=== PATIENT | female | born 1985 | race Caucasian/White ===

== ENCOUNTER 2024-08-23 16:11 | Emergency (ER) | payer SELFPAY ==
[2024-08-23 16:31] VITALS: BP 118/65; PULSE 96; RESP 20; TEMP 36.6; O2SAT 100
[2024-08-23 17:33] LABS: Influenza A QL RT-PCR Positive (Negative); Influenza B QL RT-PCR Negative (Negative); RSV RNA, RT-PCR Negative (Negative); SARS-CoV-2 RNA PCR Negative (Negative)
--- NOTE | 2024-08-23 18:51 | ED_ITS ---
HPI - General Adult General Chief complaint: Unspecified Stated complaint: family has influenza A c/o weak,n/v Time Seen by Provider: 08/23/24 18:51 Source: patient Mode of arrival: ambulatory Limitations: no limitations History of Present Illness HPI narrative: This is a 39-year-old female who presents to the ED for chief complaint of flu- like symptoms x 12 hours. Patient states that she has started to develop body aches, fatigue, nausea and sore throat. Also reports dry cough. States that she has history of asthma and feels like she has had some wheezing. Endorses soreness to the chest due to the cough. States that multiple family members have been sick at home with influenza type A. Related Data Allergies Allergy/AdvReac Type Severity Reaction Status Date / Time paper tape AdvReac Intermediate Rash Uncoded 08/23/24 16:34 Review of Systems Review of Systems: All systems as dictated in HPI Exam Narrative: GENERAL: Well-appearing, well-nourished, and in no acute distress. HEAD: Normocephalic, atraumatic. EYES: PERRLA and EOMI. ENT: Nares clear, no rhinorrhea or epistaxis. Mucous membranes moist. Oropharynx without tonsillar hypertrophy exudate or other lesions. NECK: Supple. No adenopathy or masses. CHEST: No respiratory distress. Clear to auscultation. No wheezes rales or rhonchi HEART: Regular rate and rhythm. No murmur heard. Normal peripheral pulses. ABDOMEN: Soft, nontender, nondistended, normal active bowel sounds. MSK: Normal range of motion. No edema. SKIN: Warm, dry, no rash. NEURO: Alert and oriented x4. No focal deficits. PSYCH: Normal mood and affect. Course Vital Signs Vital signs: Vital Signs Temperature 97.9 F 08/23/24 16:31 Pulse Rate 96 08/23/24 16:31 Respiratory Rate 20 08/23/24 16:31 Blood Pressure 118/65 08/23/24 16:31 Pulse Oximetry 100 08/23/24 16:31 Oxygen Delivery Room Air 08/23/24 16:31 Temperature 97.6 F 08/23/24 20:24 Pulse Rate 89 08/23/24 20:24 Respiratory Rate 18 08/23/24 20:24 Blood Pressure 112/67 08/23/24 20:24 Pulse Oximetry 100 08/23/24 20:24 Oxygen Delivery Room Air 08/23/24 16:31 Medical Decision Making MDM Narrative Medical decision making narrative: This is a 39-year-old female who presents to the ED for chief complaint of flu- like symptoms, family members positive for flu. Vitals are normal. There is remarkable for the above. Viral swabs positive for influenza type A. Patient did have slight wheezing on exam. She will be given prescription for Medrol Dosepak. Shared decision making to avoid Tamiflu prescription today. She feels comfortable treating her symptoms at home supportively. Patient will be discharged in stable condition. Supportive measures discussed and return precautions given. Patient is understanding and agreeable with plan for discharge with PCP follow-up. Vital Signs Vital Signs: Vital Signs Temperature 97.9 F 08/23/24 16:31 Pulse Rate 96 08/23/24 16:31 Respiratory Rate 20 08/23/24 16:31 Blood Pressure 118/65 08/23/24 16:31 Pulse Oximetry 100 08/23/24 16:31 Oxygen Delivery Room Air 08/23/24 16:31 Temperature 97.6 F 08/23/24 20:24 Pulse Rate 89 08/23/24 20:24 Respiratory Rate 18 08/23/24 20:24 Blood Pressure 112/67 08/23/24 20:24 Pulse Oximetry 100 08/23/24 20:24 Oxygen Delivery Room Air 08/23/24 16:31 Lab Data Labs: Lab Results 08/23/24 Range/Units 16:42 Influenza A (RT-PCR) Positive A (Negative) Influenza B (RT-PCR) Negative (Negative) RSV (RT-PCR) Negative (Negative) SARS-CoV-2 RNA (RT-PCR) Negative (Negative) Discharge Plan Discharge Clinical Impression: Influenza A Patient Disposition: Home, Self-Care Condition: Stable Instructions: Antibiotic Form, Influenza (ED) Additional Instructions: Exam today is positive for influenza. Please take your Dosepak and albuterol inhaler for wheezing and bronchitis due to the virus. Symptoms should self resolve over the next week. If you have any new or worsening symptoms please return to the ER for further evaluation. Patient Language: Icelandic Prescriptions: New methylprednisolone [Medrol (Mateo)] 4 mg tablets,dose pack See Rx Instructions .ROUTE .COMPLEX Qty: 21 0RF Rx Instructions: for 6 days albuterol sulfate [Ventolin HFA] 90 mcg/actuation HFA aerosol inhaler 2 puff inhalation QID PRN (Reason: shortness of breath or wheezing) Qty: 6.7 0RF ibuprofen 600 mg tablet 600 mg PO Q6H PRN (Reason: fever or pain) Qty: 30 0RF Follow-up/Referrals: PHYSICIAN NOT ON STAFF,NONSTAFF [Primary Care Provider] - Stand Alone Forms: Work/School Release IP Time of Disposition: 19:30
--- OUTSIDE RECORDS SUMMARY | 2024-08-23 19:01 | XMS_ITS | Continuity of Care Document ---
Author Organization [facility] Address [address] [place] [address] Phone Care Team Providers Care Issuing Operator Name Role Phone Karsten Galarza Unavailable Unavailable Allergies, Adverse Reactions, Alerts Substance Reaction Status Criticality No Known Allergies Active No Inform ation Medications Medication Instructions Dosage Effective Dates (start - stop) Status Comments trazodone 50 mg tablet take 1-2 tablet by oral route every day at bedtime as needed - Active lamotrigine ER 100 mg tablet,extended release 24 hr take 1 tablet by oral route every AM swallowing whole. Do not crush, chew and/or divide. - Active lamotrigine 25 mg tablet take 2 tablet by oral route every day 50 MG - Active hydroxyzine HCl 25 mg tablet take 1 tablet by oral route every three times a day as needed anxiety - Active Effexor XR 75 mg capsule,extended release take 1 capsule by oral route every day with food 75 MG - Active buspirone 15 mg tablet take 1 tablet by oral route 2 times every day 15 MG - Active aripiprazole 10 mg tablet take 1 tablet by oral route every day 10 MG - Active aripiprazole 5 mg tablet take 1 tablet by oral route every day 5 MG - Active buspirone 10 mg tablet take 1 tablet by oral route 3 times every day 10 MG - Active Effexor XR 37.5 mg capsule,extended release take 1 capsule by oral route every day with food 37.5 MG - Active aripiprazole 2 mg tablet take 1 tablet by oral route every day AM - Active lamotrigine 25 mg tablet take 2 tablet by oral route 2 times every day 50 MG - Active patient to take 1 tablet 25 mg PO daily x 2 weeks then; 2 tablets 50 mg PO daily x2 weeks then 4 tablets 100 mg daily thereafter buspirone 10 mg tablet take 1 tablet by oral route 2 times every day 10 MG - Active Procedures Procedure Date E&M Established 53289 - [facility] 57153 - [facility] 09645 - [facility] E&M Moderate Established 33210 - [facility] Established 06919 - [facility] E&M Comprehensive Established 56717 - [facility] E&M Moderate Established 25836 - [facility] E[facility]M Comprehensive Established 67003 - Te [facility] E&M Moderate Established 43404 - [facility] Telephonic Asmt and Mgmt Dur ing Pandemic 5 10 Psychiatric Evaluation - [facility] Individual Therapy 53+ Min Clinical Assessment As per patient privacy policy some of the clinical information may not be visible. Advance Directives Directive Yes / No Effective Date File Name No Information Encounters Encounter Description Practice Location Reason(s) For Visit Diagnoses Date Provider Providers Copied on Encounter [facility], [address], [id number], tel:[phone] [facility] No Information 4 Geovanni Shelley. [address], [place], [place], [id number]. E&M Established 07195 - [facility], [address], [place], [place], [id number], tel:[phone] Junior No Information 1 Jimmy Lemons. [address], [address], [place], [address]. tel:[phone] E&M Moderate Established 60669 - [facility], [address], [place], [place], [id number], [place] tel:[phone] Junior No Information 1 Hnilica Vesta. [address], [address], [place], [address]. tel:[phone] E&M [facility] Established 65393 - [facility], [address], [place], [place], [id number], [place] tel:[phone] Junior No Information 0 0 Hnilica Vesta. [address], [address], [place], [address]. tel:[phone] E&M [facility] Established 79979 - [facility], [address], [place], [place], [id number], [place] tel:[phone] Junior No Information 0 Hnilica Vesta. [address], [address], [place], [address]. tel:[phone] E&[facility] Established 00763 - [facility], [address], [place], [place], [id number], [place] tel:[phone] Junior No Information 0 Hnilica Vesta. [address], [address], [place], [address]. tel:[phone] E&[facility] Established 19625 - [facility], [address], [place], [place], [id number], [place] tel:[phone] Junior Bipolar I disorder, current or most recent episode manic, with psychotic features 0 Hnilica Vesta. [address], [address], [place], [address]. tel:[phone] E&M [facility] Established 24799 - [facility], [address], [place], [place], [id number], [place] tel:[phone] Junior No Information Guillermo-3 0-202 0 Hnilica Vesta. [address], [address], [place], [address]. tel:[phone] E&M [facility] 37707 - [facility], [address] [facility] [address] [place], [place], [id number], tel:[phone] Junior No Information Guillermo-1 6-202 0 Hnilica Vesta. [address], [address], [place], [address]. tel:[phone] E&M [facility] 13003 - [facility], [address] [facility], [place], [place], [id number], [place] tel:[phone] Junior No Information Apr-2 1-202 0 Hnilica Vesta. [address], [address], [place], [address]. tel:[phone] [facility], [address] [place] [address], [id number], [place] tel:[phone] Junior No Information Apr-2 0-202 0 Good Myranda. [address], [address], [place], [address]. tel:[phone] Psychiatric Evaluation - [facility], [address], [id number], [place] tel:[phone] Junior No Information Mar-3 1-202 0 Hnilica Vesta. [address], [address], [place], [address]. tel:[phone] Individual Therapy 53+ Min [facility], [address] [place] [address], [id number], [place] tel:[phone] Junior No Information Mar-1 0-202 0 No Information Clinical Assessment [facility], [address], [id number], [place] tel:[phone] Junior Persistent depressive disorder (dysthymia)U nspecified anxiety disorderPost traumatic stress disorder Mar-0 2-202 0 No Information [facility], [address], [id number], [place] tel:[phone] Junior No Information 0 Alex Ac. [address] [place], [place], [id number]. tel:[phone] Family History Family Member Type Diagnosis Age At Onset Paternal grandmother Problem (finding) Family history of anxiety state Father Problem (finding) Family history of depre ssion Father Problem substance abuse Immunizations Vaccine Date Status Comments influenza virus vaccine, unspecified formulation administered Source: New Immu nization Record Payers Payer name Insurance type Covered green party ID Authoriza tion(s) No Information Social History Type Description Quantity Date Captured Comments Sex Female Smoking Status No Information Sexual Orientation Straight or heterosexual Jul Gender Identity Female Chief Complaint And Reason For Visit No Information Reason For Referral Reason For Referral No Information Plan Of Treatment Date Type Action Status Goal Tobacco cessation counseling completed History Of Present Illness Encounter Date Complaint History Of Prese nt Illness No Information Functional Status Date Functional Assessmen t No Information Instructions Date Instruction Additional Infor mation {local.txt_patient_plan} Related to Bipolar I disorder, current or most recent episode manic, with psychotic features {local.txt_patient_plan} Related to Posttraumatic stress disorder {local.txt_patient_plan} Related to Unspecified anxiety disorder {local.txt_patient_plan} Related to Persistent depressive disorder (dysthymia) Assessments Type Assessment Date No Information Patient Care Teams Name Effective Dates (start - stop) Status Members No Information
[2024-08-23 19:06] VITALS: RESP 18; O2SAT 100
[2024-08-23 20:24] VITALS: BP 112/67; PULSE 89; RESP 18; TEMP 36.4; O2SAT 100
== END 2024-08-23 20:26 | disposition home or self-care (01) ==
PROVIDERS: Emergency Provider Physician Assistant
DX: J10.1 Influenza due to other identified influenza virus with other respiratory manifestations (principal); Z20.822 Contact with and (suspected) exposure to COVID-19
CPT/HCPCS: 87637; 99283

== ENCOUNTER 2024-08-26 11:36 | Emergency (ER) | payer SELFPAY ==
[2024-08-26 11:52] VITALS: BP 128/86; PULSE 77; RESP 16; TEMP 36.4; O2SAT 98
--- NOTE | 2024-08-26 12:15 | ED.GENADULT ---
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 She is still having some cough and rhinorrhea. No fevers. Diagnosed with influenza on 08/23/2024. 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 No additional complaints. Related Data Allergies Allergy/AdvReac Type Severity Reaction Status Date / Time paper tape AdvReac Intermediate Rash Uncoded 08/23/24 16:34 Review of Systems Constitutional: Constitutional: Reports no additional constitutional complaints ENT: Reports system reviewed and no additional complaints, except as documented Respiratory: Respiratory: Reports no additional respiratory complaints PMFSH Past Medical History Medical History (Updated 08/26/24 @ 12:18 by Tim Ayon MD) Healthy female adult Exam Narrative: GENERAL: Well-appearing, well-nourished, and in no acute distress. HEAD: Normocephalic, atraumatic. ENT: Mucous membranes moist. NECK: Supple. CHEST: Clear to auscultation. No respiratory distress. HEART: Regular rate and rhythm. Normal peripheral pulses. EXTREMITIES: Normal range of motion. No edema. NEURO: Alert and oriented x3. PSYCH: Normal mood and affect. Course Course Emergency Course: Will give 1 more day off work. Vital Signs Vital signs: Vital Signs Temperature 97.6 F 08/26/24 11:52 Pulse Rate 77 08/26/24 11:52 Respiratory Rate 16 08/26/24 11:52 Blood Pressure 128/86 08/26/24 11:52 Pulse Oximetry 98 08/26/24 11:52 Oxygen Delivery Room Air 08/26/24 11:52 Temperature 97.6 F 08/26/24 11:52 Pulse Rate 77 08/26/24 11:52 Respiratory Rate 16 08/26/24 11:52 Blood Pressure 128/86 08/26/24 11:52 Pulse Oximetry 98 08/26/24 11:52 Oxygen Delivery Room Air 08/26/24 11:52 Medical Decision Making Vital Signs Vital Signs: Vital Signs Temperature 97.6 F 08/26/24 11:52 Pulse Rate 77 08/26/24 11:52 Respiratory Rate 16 08/26/24 11:52 Blood Pressure 128/86 08/26/24 11:52 Pulse Oximetry 98 08/26/24 11:52 Oxygen Delivery Room Air 08/26/24 11:52 Temperature 97.6 F 08/26/24 11:52 Pulse Rate 77 08/26/24 11:52 Respiratory Rate 16 08/26/24 11:52 Blood Pressure 128/86 08/26/24 11:52 Pulse Oximetry 98 08/26/24 11:52 Oxygen Delivery Room Air 08/26/24 11:52 Discharge Plan Discharge Clinical Impression: Influenza Patient Disposition: Home, Self-Care Condition: Stable Instructions: Influenza (ED) Patient Language: Trinidadian Prescriptions: No Action methylprednisolone [Medrol (Mateo)] 4 mg tablets,dose pack See Rx Instructions .ROUTE .COMPLEX Qty: 21 0RF Rx Instructions: for 6 days albuterol sulfate [Ventolin HFA] 90 mcg/actuation HFA aerosol inhaler 2 puff inhalation QID PRN (Reason: shortness of breath or wheezing) Qty: 6.7 0RF ibuprofen 600 mg tablet 600 mg PO Q6H PRN (Reason: fever or pain) Qty: 30 0RF Follow-up/Referrals: 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
== END 2024-08-26 12:37 | disposition home or self-care (01) ==
LOC: ANHED 12:21
PROVIDERS: Emergency Provider Emergency Medicine
DX: J11.1 Influenza due to unidentified influenza virus with other respiratory manifestations (principal)
CPT/HCPCS: 99283

== ENCOUNTER 2024-11-27 04:07 | Emergency (ER) | payer SELFPAY ==
[2024-11-27] VITALS (17 sets, daily range): BP systolic 90–117; BP diastolic 68–84; PULSE 43–85; RESP 12–25; TEMP 36–36.7; O2SAT 97–100
--- NOTE | ~2024-11-27 | XR_ITS ---
AP and oblique views of the right ribs and PA and lateral chest radiographs Clinical History: Pain Findings: No rib fracture is seen. Osseous alignment is anatomic. Lungs are clear, without focal cons olidation or pleural effusion. Cardiomediastinal contour is within normal limits. Soft tissues are un remarkable. Mild L1 compression fracture deformity present. Impression: No rib fracture is seen. Clear lungs. Mild L1 compression fracture deformity. Reviewed, dictated and finalized at location M. Impression: No rib fracture is seen. Clear lungs. Mild L1 compression fracture deformity.
--- NOTE | ~2024-11-27 | CT_ITS ---
CT Scan of the Chest without Contrast: Clinical Indication: Chest pain, rib fracture Technique: Contiguous sections were acquired throughout the chest without intravenous contrast. Dose reduction technique was used on this scan by utilizing automated exposure control and iterative recon struction technique. The dose-length product (DLP) was 149.04 mGy-cm. Findings: There is no evidence of any significant mediastinal, hilar or axillary lymphadenopathy. The mediastin al soft tissues appear normal. There is no evidence of pleural or pericardial effusion. The lungs are clear. No pulmonary nodules or infiltrates are noted. Images through the upper abdomen reveal no abnormalities. Mild L1 compression fracture deformities no naheed, likely chronic. No rib fracture seen. Impression: No rib fracture seen. Clear lungs. Probable chronic L1 compression deformity. Reviewed, dictated and finalized at [facility]. Impression: No rib fracture seen. Clear lungs. Probable chronic L1 compression deformity.
--- NOTE | 2024-11-27 04:25 | ED.SOB ---
HPI - SOB/Dyspnea General Chief Complaint: Shortness of Breath/Dyspnea <Mayela Garvey MD - Last Filed: 11/27/24 17:34> Stated Complaint: R chest pressure <Mayela Garvey MD - Last Filed: 11/27/24 17:34> Time Seen by Provider: 11/27/24 04:22 <Mayela Garvey MD - Last Filed: 11/27/24 17:34> Source: patient <Mayela Garvey MD - Last Filed: 11/27/24 17:34> Mode of arrival: ambulatory <Mayela Garvey MD - Last Filed: 11/27/24 17:34> Limitations: no limitations <Mayela Garvey MD - Last Filed: 11/27/24 17:34> History of Present Illness HPI Narrative: Patient presents with right-sided chest pain/pressure was rib pain particularly along her left lateral and anterior chest in particular under her right breast. She received a tight of good for someone 2 days ago during which time she felt a pop. At 1st she thought it was her back but the pain has been increasing it hurts to breathe. She feels short of breath and nauseated. She has been using ibuprofen at home. Cardiac risk factors HTN: 0 HLD:0 DM:0 Obese:0 Smoker: Yes Personal history DE/TIA/CVA: 0 Fam Hx DE in first degree relative <65yo: Yes <Mayela Garvey MD - Last Filed: 11/27/24 17:34> Related Data Allergies/Adverse Reactions: Allergies Allergy/AdvReac Type Severity Reaction Status Date / Time paper tape AdvReac Intermediate Rash Uncoded 08/23/24 16:34 <Mayela Garvey MD - Last Filed: 11/27/24 17:34> [facility] Past Medical History Medical History: Medical History Influenza A Aug 2024 <Mayela Garvey MD - Last Filed: 11/27/24 17:34> Exam Narrative: GENERAL: well-nourished, in mild acute distress. HEAD: Normocephalic, atraumatic. EYES: Non injected, non icteric ENT: Nares clear, no rhinorrhea or epistaxis. Gross auditory acuity intact. NECK: Supple. No meningismus. CHEST: Speaking in full sentences. No respiratory distress. Splinting on full breaths but breath sounds appreciable bilaterally. Tenderness to palpation left lateral chest wall and anterior chest wall. No bony crepitus or subcutaneous emphysema. HEART: Regular rate and rhythm. . ABDOMEN: Soft, nondistended. No rigidity or guarding. Not peritoneal EXTREMITIES: Normal range of motion. No lower extremity edema. SKIN: Warm, dry, no rash. NEURO: No focal deficits. Alert and oriented. Answering questions. Following commands. Normal speech without aphasia or dysarthria. PSYCH: Congruent mood and affect. <Mayela Garvey MD - Last Filed: 11/27/24 17:34> Course Vital Signs Vital signs: Vital Signs Temperature 96.8 F L 11/27/24 04:10 Pulse Rate 85 11/27/24 04:10 Respiratory Rate 15 11/27/24 04:10 Blood Pressure 110/83 11/27/24 04:10 Pulse Oximetry 100 11/27/24 04:10 Oxygen Delivery Room Air 11/27/24 04:10 Temperature 98.1 F 11/27/24 04:31 Pulse Rate 56 L 11/27/24 09:02 Respiratory Rate 16 11/27/24 09:02 Blood Pressure 100/70 11/27/24 09:02 Pulse Oximetry 99 11/27/24 09:02 Oxygen Delivery Room Air 11/27/24 04:26 <Mayela Garvey MD - Last Filed: 11/27/24 17:34> Vital Signs Temperature 96.8 F L 11/27/24 04:10 Pulse Rate 85 11/27/24 04:10 Respiratory Rate 15 11/27/24 04:10 Blood Pressure 110/83 11/27/24 04:10 Pulse Oximetry 100 11/27/24 04:10 Oxygen Delivery Room Air 11/27/24 04:10 Temperature 98.1 F 11/27/24 04:31 Pulse Rate 56 L 11/27/24 09:02 Respiratory Rate 16 11/27/24 09:02 Blood Pressure 100/70 11/27/24 09:02 Pulse Oximetry 99 11/27/24 09:02 Oxygen Delivery Room Air 11/27/24 04:26 <Shyam Sanchez III, DO - Last Filed: 11/27/24 18:01> MDM - SOB/Dyspnea MDM Narrative Medical decision making narrative: Patient presents with chest pain and shortness of breath. She felt a pop recently when she was hugged is otherwise been chest wall pain particularly anterolaterally on the right. In the emergency department they are afebrile with vital signs within normal limits. Dimer mildly abnormal but: YEARS Algorithm Clinical signs of DVT: No Hemoptysis: No PE is most likely diagnosis: No D-dimer >1000ng/mL: No Result: PE Excluded HEART SCORE History 2 highly suspicious 1 moderately suspicious 0 slightly suspicious History score [address] depression/elevation not due to LBBB, LVH, or digoxin [address] depression but LBBB, LVH, nonspecific repolarization changes 0 normal ECG score 0 Age 2 >/= 65 1 45-64 0 <45 Age score 0 Risk factors (HTN, hypercholesterolemia, DM, obesity with BMI >30, current smoker or cessation </=3mo), positive fam hx with parent or sibling with CVD before age 65, atherosclerotic disease (prior DE, PCI/CABG, CVA/TIA, or peripheral arterial disease) 2 >/= 3 risk factors or history of atherosclerotic dz 1 - 1-2 risk factors 0 no known risk factors Risk factor score 1 Initial Troponin 2 >3 times normal limit 1 1-3 times normal limit 0 less than or equal to normal limit Troponin score 0 Total HEART Score 1 Patient continued to have pain despite negative x-ray. Proceed with CT imaging to assess for occult rib fracture(s). Signed out to oncoming ED attending. <Mayela Garvey MD - Last Filed: 11/27/24 17:34> Patient presents with chest pain and shortness of breath. She felt a pop recently when she was hugged is otherwise been chest wall pain particularly anterolaterally on the right. In the emergency department they are afebrile with vital signs within normal limits. Dimer mildly abnormal but: YEARS Algorithm Clinical signs of DVT: No Hemoptysis: No PE is most likely diagnosis: No D-dimer >1000ng/mL: No Result: PE Excluded HEART SCORE History 2 highly suspicious 1 moderately suspicious 0 slightly suspicious History score [address] depression/elevation not due to LBBB, LVH, or digoxin [address] depression but LBBB, LVH, nonspecific repolarization changes 0 normal ECG score 0 Age 2 >/= 65 1 45-64 0 <45 Age score 0 Risk factors (HTN, hypercholesterolemia, DM, obesity with BMI >30, current smoker or cessation </=3mo), positive fam hx with parent or sibling with CVD before age 65, atherosclerotic disease (prior DE, PCI/CABG, CVA/TIA, or peripheral arterial disease) 2 >/= 3 risk factors or history of atherosclerotic dz 1 - 1-2 risk factors 0 no known risk factors Risk factor score 1 Initial Troponin 2 >3 times normal limit 1 1-3 times normal limit 0 less than or equal to normal limit Troponin score 0 Total HEART Score 1 Patient continued to have pain despite negative x-ray. Proceed with CT imaging to assess for occult rib fracture(s). Signed out to oncoming ED attending. assumned care pending ct. no fx seen in ribs on ct has l1 compression fx. Pt is tender there so will treat as acute with norco for home. <Shyam Salamancaver III, DO - Last Filed: 11/27/24 18:01> Lab Data Attestation: I reviewed the patient's lab results. <Mayela Garvey MD - Last Filed: 11/27/24 17:34> Lab results narrative: CBC without anemia, thrombocytopenia, leukocytosis. <Mayela Garvey MD - Last Filed: 11/27/24 17:34> Result diagrams: 11/27/24 04:34 11/27/24 04:34 <Mayela Garvey MD - Last Filed: 11/27/24 17:34> Labs: Lab Results 11/27/24 11/27/24 11/27/24 Range/Units 04:34 04:34 06:16 WBC 7.6 (4.5-10.0) K/mm3 RBC 3.97 L (4.2-5.4) M/mm3 Hgb 12.7 (12.0-15.0) g/dL Hct 38.7 (37.0-47.0) % MCV 97.5 (80-100) fl MCH 32.0 (26-34) pg MCHC 32.8 (32-36) g/dl RDW 13.1 (11.5-14.5) % Plt Count 246 (150-375) k/mm3 MPV 11.2 H (7.4-10.4) fl Immature Gran % (Auto) 0.3 (0-0.5) % Neut % (Auto) 69.2 (45.5-73.1) % Lymph % (Auto) 18.4 (18.3-44.2) % [place] % (Auto) 8.1 (2.6-8.5) % Eos % (Auto) 3.0 (0-4.4) % Baso % (Auto) 1.0 (0.2-1.2) % Lymph # (Auto) 1.40 (0.9-3.2) K/mm3 [place] # (Auto) 0.6 (0.1-0.6) K/mm3 Eos # (Auto) 0.2 (0-0.3) K/mm3 Baso # (Auto) 0.1 (0.0-0.1) K/mm3 Abs Immat Gran (auto) 0.02 (0.00-0.031) K/mm3 Absolute Neuts (auto) 5.3 (1.3-6.7) K/mm3 Absolute Nucleated RBC 0.000 (0.0-0.012) K/mm3 Nucleated RBC % 0.0 (0.0-0.2) % PT 13.5 (11.1-14.7) Seconds INR 1.0 APTT 32.6 (22.3-36.8) Seconds D-Dimer 0.64 H Cancelled (<0.48) ug/mL Sodium 140 (137-145) mmol/L Potassium 4.0 (3.4-5.0) mmol/L Chloride 109 H (98-107) mmol/L Carbon Dioxide 22 (22-30) mmol/L Anion Gap 9 (4-12) mmol/L BUN 15 (7-17) mg/dL Creatinine 0.81 (0.7-1.0) mg/dL Estim Creat Clear Calc 78 ml/min Estimated GFR > 60 (59 - ) Glucose 95 (65-110) mg/dL Calcium 9.4 (8.4-10.2) mg/dL Total Bilirubin 1.2 (0.2-1.3) mg/dL AST 32 (14-36) U/L ALT 25 (6-35) U/L Alkaline Phosphatase 72 (38-126) U/L Troponin I < 0.012 (0.000-0.034) ng/mL Total Protein 8.0 (6.3-8.2) g/dL Albumin 4.7 (3.5-5.1) g/dL Lipase 37 (23-300) U/L POC Urine HCG, Qual Negative (Negative) Influenza A (RT-PCR) (Negative) Influenza B (RT-PCR) (Negative) RSV (RT-PCR) (Negative) SARS-CoV-2 RNA (RT-PCR) (Negative) 11/27/24 11/27/24 Range/Units 06:18 08:04 WBC (4.5-10.0) K/mm3 RBC (4.2-5.4) M/mm3 Hgb (12.0-15.0) g/dL Hct (37.0-47.0) % MCV (80-100) fl MCH (26-34) pg MCHC (32-36) g/dl RDW (11.5-14.5) % Plt Count (150-375) k/mm3 MPV (7.4-10.4) fl Immature Gran % (Auto) (0-0.5) % Neut % (Auto) (45.5-73.1) % Lymph % (Auto) (18.3-44.2) % [place] % (Auto) (2.6-8.5) % Eos % (Auto) (0-4.4) % Baso % (Auto) (0.2-1.2) % Lymph # (Auto) (0.9-3.2) K/mm3 [place] # (Auto) (0.1-0.6) K/mm3 Eos # (Auto) (0-0.3) K/mm3 Baso # (Auto) (0.0-0.1) K/mm3 Abs Immat Gran (auto) (0.00-0.031) K/mm3 Absolute Neuts (auto) (1.3-6.7) K/mm3 Absolute Nucleated RBC (0.0-0.012) K/mm3 Nucleated RBC % (0.0-0.2) % PT (11.1-14.7) Seconds INR APTT (22.3-36.8) Seconds D-Dimer (<0.48) ug/mL Sodium (137-145) mmol/L Potassium (3.4-5.0) mmol/L Chloride (98-107) mmol/L Carbon Dioxide (22-30) mmol/L Anion Gap (4-12) mmol/L BUN (7-17) mg/dL Creatinine (0.7-1.0) mg/dL Estim Creat Clear Calc ml/min Estimated GFR (59 - ) Glucose (65-110) mg/dL Calcium (8.4-10.2) mg/dL Total Bilirubin (0.2-1.3) mg/dL AST (14-36) U/L ALT (6-35) U/L Alkaline Phosphatase (38-126) U/L Troponin I < 0.012 (0.000-0.034) ng/mL Total Protein (6.3-8.2) g/dL Albumin (3.5-5.1) g/dL Lipase (23-300) U/L POC Urine HCG, Qual (Negative) Influenza A (RT-PCR) Negative (Negative) Influenza B (RT-PCR) Negative (Negative) RSV (RT-PCR) Negative (Negative) SARS-CoV-2 RNA (RT-PCR) Negative (Negative) <Mayela Garvey MD - Last Filed: 11/27/24 17:34> Lab Results 11/27/24 11/27/24 11/27/24 Range/Units 04:34 04:34 06:16 WBC 7.6 (4.5-10.0) K/mm3 RBC 3.97 L (4.2-5.4) M/mm3 Hgb 12.7 (12.0-15.0) g/dL Hct 38.7 (37.0-47.0) % MCV 97.5 (80-100) fl MCH 32.0 (26-34) pg MCHC 32.8 (32-36) g/dl RDW 13.1 (11.5-14.5) % Plt Count 246 (150-375) k/mm3 MPV 11.2 H (7.4-10.4) fl Immature Gran % (Auto) 0.3 (0-0.5) % Neut % (Auto) 69.2 (45.5-73.1) % Lymph % (Auto) 18.4 (18.3-44.2) % [place] % (Auto) 8.1 (2.6-8.5) % Eos % (Auto) 3.0 (0-4.4) % Baso % (Auto) 1.0 (0.2-1.2) % Lymph # (Auto) 1.40 (0.9-3.2) K/mm3 [place] # (Auto) 0.6 (0.1-0.6) K/mm3 Eos # (Auto) 0.2 (0-0.3) K/mm3 Baso # (Auto) 0.1 (0.0-0.1) K/mm3 Abs Immat Gran (auto) 0.02 (0.00-0.031) K/mm3 Absolute Neuts (auto) 5.3 (1.3-6.7) K/mm3 Absolute Nucleated RBC 0.000 (0.0-0.012) K/mm3 Nucleated RBC % 0.0 (0.0-0.2) % PT 13.5 (11.1-14.7) Seconds INR 1.0 APTT 32.6 (22.3-36.8) Seconds D-Dimer 0.64 H Cancelled (<0.48) ug/mL Sodium 140 (137-145) mmol/L Potassium 4.0 (3.4-5.0) mmol/L Chloride 109 H (98-107) mmol/L Carbon Dioxide 22 (22-30) mmol/L Anion Gap 9 (4-12) mmol/L BUN 15 (7-17) mg/dL Creatinine 0.81 (0.7-1.0) mg/dL Estim Creat Clear Calc 78 ml/min Estimated GFR > 60 (59 - ) Glucose 95 (65-110) mg/dL Calcium 9.4 (8.4-10.2) mg/dL Total Bilirubin 1.2 (0.2-1.3) mg/dL AST 32 (14-36) U/L ALT 25 (6-35) U/L Alkaline Phosphatase 72 (38-126) U/L Troponin I < 0.012 (0.000-0.034) ng/mL Total Protein 8.0 (6.3-8.2) g/dL Albumin 4.7 (3.5-5.1) g/dL Lipase 37 (23-300) U/L POC Urine HCG, Qual Negative (Negative) Influenza A (RT-PCR) (Negative) Influenza B (RT-PCR) (Negative) RSV (RT-PCR) (Negative) SARS-CoV-2 RNA (RT-PCR) (Negative) 11/27/24 11/27/24 Range/Units 06:18 08:04 WBC (4.5-10.0) K/mm3 RBC (4.2-5.4) M/mm3 Hgb (12.0-15.0) g/dL Hct (37.0-47.0) % MCV (80-100) fl MCH (26-34) pg MCHC (32-36) g/dl RDW (11.5-14.5) % Plt Count (150-375) k/mm3 MPV (7.4-10.4) fl Immature Gran % (Auto) (0-0.5) % Neut % (Auto) (45.5-73.1) % Lymph % (Auto) (18.3-44.2) % [place] % (Auto) (2.6-8.5) % Eos % (Auto) (0-4.4) % Baso % (Auto) (0.2-1.2) % Lymph # (Auto) (0.9-3.2) K/mm3 [place] # (Auto) (0.1-0.6) K/mm3 Eos # (Auto) (0-0.3) K/mm3 Baso # (Auto) (0.0-0.1) K/mm3 Abs Immat Gran (auto) (0.00-0.031) K/mm3 Absolute Neuts (auto) (1.3-6.7) K/mm3 Absolute Nucleated RBC (0.0-0.012) K/mm3 Nucleated RBC % (0.0-0.2) % PT (11.1-14.7) Seconds INR APTT (22.3-36.8) Seconds D-Dimer (<0.48) ug/mL Sodium (137-145) mmol/L Potassium (3.4-5.0) mmol/L Chloride (98-107) mmol/L Carbon Dioxide (22-30) mmol/L Anion Gap (4-12) mmol/L BUN (7-17) mg/dL Creatinine (0.7-1.0) mg/dL Estim Creat Clear Calc ml/min Estimated GFR (59 - ) Glucose (65-110) mg/dL Calcium (8.4-10.2) mg/dL Total Bilirubin (0.2-1.3) mg/dL AST (14-36) U/L ALT (6-35) U/L Alkaline Phosphatase (38-126) U/L Troponin I < 0.012 (0.000-0.034) ng/mL Total Protein (6.3-8.2) g/dL Albumin (3.5-5.1) g/dL Lipase (23-300) U/L POC Urine HCG, Qual (Negative) Influenza A (RT-PCR) Negative (Negative) Influenza B (RT-PCR) Negative (Negative) RSV (RT-PCR) Negative (Negative) SARS-CoV-2 RNA (RT-PCR) Negative (Negative) <Shyam Roberto Sanchez III, DO - Last Filed: 11/27/24 18:01> Imaging Data Radiologist's impression: Impressions Ribs w/Chest X-Ray 11/27/24 06:28 Impression: No rib fracture is seen. Clear lungs. Mild L1 compression fracture deformity. <Mayela Garvey MD - Last Filed: 11/27/24 17:34> ECG Data EKG #1: Attestation: I personally reviewed and interpreted this ECG as follows: <Mayela Garvey MD - Last Filed: 11/27/24 17:34> ECG completion date: 11/27/24 <Mayela Garvey MD - Last Filed: 11/27/24 17:34> ECG completion time: 04:41 <Mayela Garvey MD - Last Filed: 11/27/24 17:34> Interpretation: Sinus bradycardia rate of 57 beats per minute. [place] interval 148. QRS 98. QT/QTC 422/415. Good R-wave progression across the precordial leads. No T-wave inversion. <Mayela Garvey MD - Last Filed: 11/27/24 17:34> Discharge Plan Discharge Clinical Impression: Contusion of bone, Compression fracture of L1 vertebra, Chest pain <Mayela Garvey MD - Last Filed: 11/27/24 17:34> Patient Disposition: Home <Mayela Garvey MD - Last Filed: 11/27/24 17:34> Condition: Stable <Mayela Garvey MD - Last Filed: 11/27/24 17:34> Instructions: Antibiotic Form, Vertebral Compression Fracture (ED) <Mayela Garvey MD - Last Filed: 11/27/24 17:34> Patient Language: Rwandan <Mayela Garvey MD - Last Filed: 11/27/24 17:34> Prescriptions: New hydrocodone-acetaminophen 5-325 mg tablet 1 tablet PO Q6H PRN (Reason: pain) Qty: 14 0RF No Action methylprednisolone [Medrol (Mateo)] 4 mg tablets,dose pack See Rx Instructions .ROUTE .COMPLEX Qty: 21 0RF Rx Instructions: for 6 days albuterol sulfate [Ventolin HFA] 90 mcg/actuation HFA aerosol inhaler 2 puff inhalation QID PRN (Reason: shortness of breath or wheezing) Qty: 6.7 0RF ibuprofen 600 mg tablet 600 mg PO Q6H PRN (Reason: fever or pain) Qty: 30 0RF <Mayela Garvey MD - Last Filed: 11/27/24 17:34> Follow-up/Referrals: Marcellus Levin MD [Physician] - PHYSICIAN,[employer] [Primary Care Provider] - <Mayela Garvey MD - Last Filed: 11/27/24 17:34>
--- NOTE | 2024-11-27 04:27 | ECG_ITS ---
Test Date: 2024-11-27 04:41:56 Measurements Intervals [place] Rate: 57 P: 63 MN: 148 QRS: 1 QRSD: 98 T: 52 QT: 422 QTc: 411 Interpretive Statements SINUS BRADYCARDIA No previous ECG available for comparison Electronically Signed On 11-27-2024 12:43:07 CDT by Raghav Crane M.D.
[2024-11-27] MEDS: ASPIRIN 81 MG CHEWABLE TABLET 324 MG PO (04:36)
[2024-11-27] MEDS: HYDROcodone/acetaminophen (*CRX) 5-325 MG TABLET 1 TAB PO (04:37)
[2024-11-27 04:48] LABS: Basophils Absolute Auto 0.1 K/mm3 (0.0-0.1); Eosinophils Absolute Auto 0.2 K/mm3 (0-0.3); Hematocrit 38.7 % (37.0-47.0); Hemoglobin 12.7 g/dL (12.0-15.0); Immature Granulocyte Absolute 0.02 K/mm3 (0.00-0.031); Immature Granulocyte Percent A 0.3 % (0-0.5); Lymphocytes Percent Auto 18.4 % (18.3-44.2); Mean Corpuscular HGB Conc 32.8 g/dl (32-36); Mean Corpuscular Volume 97.5 fl (80-100); Mean Platelet Volume 11.2 fl (7.4-10.4); Monocytes Absolute Auto 0.6 K/mm3 (0.1-0.6); Monocytes Percent Auto 8.1 % (2.6-8.5); Neutrophils Absolute Auto 5.3 K/mm3 (1.3-6.7); Neutrophils Percent Auto 69.2 % (45.5-73.1); Platelet Count Result 246 k/mm3 (150-375); Red Blood Count 3.97 M/mm3 (4.2-5.4); Red Cell Distribution Width 13.1 % (11.5-14.5); White Blood Count 7.6 K/mm3 (4.5-10.0)
[2024-11-27 04:57] LABS: Alanine Aminotransferase 25 U/L (6-35); Albumin Level 4.7 g/dL (3.5-5.1); Alkaline Phosphatase 72 U/L (38-126); Anion Gap 9 mmol/L (4-12); Aspartate Amino Transferase 32 U/L (14-36); Bilirubin,Total 1.2 mg/dL (0.2-1.3); Blood Urea Nitrogen 15 mg/dL (7-17); Calcium 9.4 mg/dL (8.4-10.2); Carbon Dioxide 22 mmol/L (22-30); Chloride 109 mmol/L (98-107); Estimated CRCL calculation 78 ml/min; Estimated Glomerular Filt Rate > 60; Glucose 95 mg/dL (65-110); Lipase 37 U/L (23-300); Sodium 140 mmol/L (137-145)
[2024-11-27] MEDS: ONDANSETRON INJ 4 MG/2 ML VIAL IV PUSH (04:58)
[2024-11-27 05:01] LABS: Prothrombin Time 13.5 Seconds (11.1-14.7)
[2024-11-27 05:02] LABS: Partial Thromboplastin Time 32.6 Seconds (22.3-36.8)
[2024-11-27 05:08] LABS: Troponin I < 0.012 ng/mL (0.000-0.034)
[2024-11-27 05:10] LABS: D Dimer 0.64 ug/mL (<0.48)
[2024-11-27] MEDS: HYDROmorphone HCL INJ (*CRX) 2 MG/ML VIAL 0.5 MG IV PUSH (06:12)
[2024-11-27 06:17] LABS: BEDSIDEPREGUCG Negative (Negative)
[2024-11-27 07:02] LABS: Influenza A QL RT-PCR Negative (Negative); Influenza B QL RT-PCR Negative (Negative); RSV RNA, RT-PCR Negative (Negative); SARS-CoV-2 RNA PCR Negative (Negative)
[2024-11-27 08:46] LABS: Troponin I < 0.012 ng/mL (0.000-0.034)
== END 2024-11-27 09:04 | disposition home or self-care (01) ==
PROVIDERS: Student in an Organized Health Care Education/Training Program; Emergency Provider Emergency Medicine
DX: S32.010A Wedge compression fracture of first lumbar vertebra, initial encounter for closed fracture (principal); Z20.822 Contact with and (suspected) exposure to COVID-19; R00.1 Bradycardia, unspecified; X58.XXXA Exposure to other specified factors, initial encounter
CPT/HCPCS: 36415; 71046; 71100; 71250; 80053; 81025; 83690; 84484; 85025; 85380; 85610; 85730; 87637; 93005; 96374; 96375; 99284; A9270; J1171; J2405

== ENCOUNTER 2024-11-28 07:00 | Emergency (ER) | payer OTHER, SELFPAY ==
--- NOTE | ~2024-11-28 | XR_ITS ---
EXAMINATION: XR chest 2V DATE: 11/28/2024 07:35 INDICATION: Rib pain and shortness of breath TECHNIQUE: PA and lateral views of the chest were obtained. COMPARISON: Chest radiograph and CT dated 11/27/24 FINDINGS: The lungs remain clear with no focal airspace opacities, pulmonary edema, pleural effusion or pneumot horax. The cardiomediastinal silhouette is normal. Mild thoracic spondylosis. Chronic appearing mild anterior wedging at L1. IMPRESSION: 1. No acute cardiopulmonary disease. Reviewed, dictated and finalized at location A.
[2024-11-28 07:02] VITALS: BP 106/57; PULSE 76; RESP 18; TEMP 36.6; O2SAT 99
--- OUTSIDE RECORDS SUMMARY | 2024-11-28 07:03 | XMS_ITS | Continuity of Care Document ---
Author Organization [facility] Address [address] [place] [address] Phone Care Team Providers Care Herb Doctor Name Role Phone Karsten Galarza Unavailable Unavailable [...] - Active Procedures Procedure Date E&M Established 00246 [facility] 05492 - [facility] Establ[facility] 96953 - Te [facility] E&M Moderate Established 35614 - [facility] Established 05216 - [facility] E&M Comprehensive Established 47808 - Te [facility] E&M Moderate Established 78249 - [facility] Established 45561 - Te [facility] E&M Moderate Established 05801 - [facility] Telephonic Asmt and Mgmt Dur ing Pandemic 5 10 Psychiatric Evaluation - [facility] Individual Therapy 53+ Min Clinical Assessment As per patient privacy policy some of the clinical information may not be visible. Advance Directives Directive Yes / No Effective Date File Name No Information Encounters Encounter Description Practice Location Reason(s) For Visit Diagnoses Date Provider Providers Copied on Encounter [facility], [address] [facility] [address] [facility] [address], [id number], tel:[phone] [facility] No Information 4 Geovanni Shelley. [address], [place], [place], [id number]. E&M Established 67616 - [facility], [address] [facility], [place], [place], [id number], tel:[phone] Junior No Information 1 Jimmy Lemons. [address], [address], [place], [address]. tel:[phone] E&M Moderate Established 94008 - [facility], [address], [place], [place], [id number], [place] tel:[phone] Junior No Information 1 Hnilica Vesta. [address], [address], [place], [address]. tel:[phone] E&M [facility] Established 04784 - [facility], [address], [place], [place], [id number], [place] tel:[phone] Junior No Information 0 0 Hnilica Vesta. [address], [address], [place], [address]. tel:[phone] E&M [facility] Established 44904 - [facility], [address], [place], [place], [id number], [place] tel:[phone] Junior No Information 0 Hnilica Vesta. [address], [address], [place], [address]. tel:[phone] E&[facility] Established 00686 - [facility], [address], [place], [place], [id number], [place] tel:[phone] Junior No Information 0 Hnilica Vesta. [address], [address], [place], [address]. tel:[phone] E&[facility] Established 52641 - [facility], [address], [place], [place], [id number], [place] tel:[phone] Junior Bipolar I disorder, current or most recent episode manic, with psychotic features 0 Hnilica Vesta. [address], [address], [place], [address]. tel:[phone] E&M [facility] Established 30410 - [facility], [address], [place], [place], [id number], [place] tel:[phone] Junior No Information Guillermo-3 0-202 0 Hnilica Vesta. [address], [address], [place], [address]. tel:[phone] E&M [facility] 62287 - [facility], [address] [facility] [place], [place], [id number], tel:[phone] Junior No Information Guillermo-1 6-202 0 Hnilica Vesta. [address], [address], [place], [address]. tel:[phone] E&M [facility] 40313 - [facility], [address] [facility], [place], [place], [id number], [place] tel:[phone] Junior No Information Apr-2 1-202 0 Hnilica Vesta. [address], [address], [place], [address]. tel:[phone] [facility], [address] [place] [address], [id number], [place] tel:[phone] Junior No Information Apr-2 0-202 0 Good Myranda. [address], [address], [place], [address]. tel:[phone] Psychiatric Evaluation - [facility], [address], [id number], [place] tel:[phone] Junior No Information Mar-3 1-202 0 Hnilica Vesta. [address], [address], [place], [address]. tel:[phone] Individual Therapy 53+ Min [facility], [address] [place] [address], [id number], [place] tel:[phone] Junior No Information Mar-1 0-202 0 No Information Clinical Assessment [facility], [address], [id number], [place] tel:[phone] Junior Persistent depressive disorder (dysthymia)U nspecified anxiety disorderPost traumatic stress disorder Mar-0 2-202 0 No Information [facility], [address], [id number], [place] tel:[phone] Junior No Information 0 Alex Ac[address] [place], [place], [id number]. tel:[phone] Family History Family Member Type Diagnosis Age At Onset Paternal grandmother Problem (finding) Family history of anxiety state Father Problem (finding) Family history of depre ssion Father Problem substance abuse Immunizations Vaccine Date Status Comments influenza virus vaccine, unspecified formulation administered Source: New Immu nization Record Payers Payer name Insurance type Covered republican ID Authoriza tion(s) No Information Social History [...]
--- OUTSIDE RECORDS SUMMARY | 2024-11-28 07:39 | XMS_ITS | Continuity of Care Document ---
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 Name Role Phone Karsten Galarza Unavailable Unavailable [...] - Active Procedures Procedure Date E&M Established 40113 - [facility] 74674 - [facility] Comprehensive Established 76619 - Te [facility] E&M Moderate Established 30017 - [facility] E[facility]M Comprehensive Established 52885 - Te Health E&M Comprehensive Established 43560 - Te [facility] E&M Moderate Established 79876 - [facility] E[facility]M Comprehensive Established 15595 - Te [facility] E&M Moderate Established 58034 - [facility] Telephonic Asmt and Mgmt Dur ing Pandemic 5 10 Psychiatric Evaluation - [facility] Individual Therapy 53+ Min Clinical Assessment As per patient privacy policy some of the clinical information may not be visible. Advance Directives Directive Yes / No Effective Date File Name No Information Encounters Encounter Description Practice Location Reason(s) For Visit Diagnoses Date Provider Providers Copied on Encounter [facility], [address] [employer], [id number], tel:[phone] [facility] No Information 4 Geovanni Shelley. [address], [place], [place], [id number]. E&M Established 71025 - [facility], [address] [facility] [facility] [address], [place], [place], [id number], tel:[phone] Junior No Information 1 Jimmy Lemons. [address], [address], [place], [address]. tel:[phone] E&M Moderate Established 22520 - [facility], [address], [place], [place], [id number], [place] tel:[phone] Junior No Information 1 Hnilica Vesta. [address], [address], [place], [address]. tel:[phone] E&M [facility] Established 24912 - [facility], [address], [place], [place], [id number], [place] tel:[phone] Junior No Information 0 0 Hnilica Vesta. [address], [address], [place], [address]. tel:[phone] E&M [facility] Established 90095 - [facility], [address], [place], [place], [id number], [place] tel:[phone] Junior No Information 0 Hnilica Vesta. [address], [address], [place], [address]. tel:[phone] E&[facility] Established 27361 - [facility], [address], [place], [place], [id number], [place] tel:[phone] Junior No Information 0 Hnilica Vesta. [address], [address], [place], [address]. tel:[phone] E&[facility] Established 14631 - [facility], [address], [place], [place], [id number], [place] tel:[phone] Junior Bipolar I disorder, current or most recent episode manic, with psychotic features 0 Hnilica Vesta. [address], [address], [place], [address]. tel:[phone] E&M [facility] Established 78398 - [facility], [address], [place], [place], [id number], [place] tel:[phone] Junior No Information Guillermo-3 0-202 0 Hnilica Vesta. [address], [address], [place], [address]. tel:[phone] E&M [facility] 51736 - [facility], [address] [facility], [place], [place], [id number], tel:[phone] Junior No Information Guillermo-1 6-202 0 Hnilica Vesta. [address], [address], [place], [address]. tel:[phone] E&M [facility] 49071 - [facility], [address] [facility], [place], [place], [id number], [place] tel:[phone] Junior No Information Apr-2 1-202 0 Hnilica Vesta. [address], [address], [place], [address]. tel:[phone] [facility], [address] [place] [address], [id number], [place] tel:[phone] Junior No Information Apr-2 0-202 0 Good Myranda. [address], [address], [place], [address]. tel:[phone] Psychiatric Evaluation - [facility], [address], [id number], [place] tel:[phone] Junior No Information Mar-3 1-202 0 Hnilica Vesta. [address], [address], [place], [address]. tel:[phone] Individual Therapy 53+ Min [facility], [address] [place] [address], [id number], [place] tel:[phone] Junior No Information Mar-1 0-202 0 No Information Clinical Assessment [facility], [address], [id number], [place] tel:[phone] Junior Persistent depressive disorder (dysthymia)U nspecified anxiety disorderPost traumatic stress disorder Mar-0 2-202 0 No Information [facility], [address], [id number], [place] tel:[phone] Junior No Information 0 Alex Ac[address] [place], [place], [id number]. tel:[phone] Family History Family Member Type Diagnosis Age [...]
--- NOTE | 2024-11-28 07:54 | ED.GENADULT ---
HPI - General Adult General Chief complaint: Shortness of Breath/Dyspnea Stated complaint: R rib pain Time Seen by Provider: 11/28/24 07:19 History of Present Illness HPI narrative: 39-year-old female present to the emergency department for evaluation for right-sided chest wall pain. Patient did have a ground level fall 3 days ago and was diagnosed with a compression fracture of L1. Review of the CT from that day shows that there were clear lungs, no rib fractures and the L1 compression was suspected to be chronic. Patient presents to the emergency department complaining of worsening right-sided chest wall pain. Patient denies any falls or injuries. Patient states she was prescribed Festus for pain control. Related Data Allergies Allergy/AdvReac Type Severity Reaction Status Date / Time paper tape AdvReac Intermediate Rash Uncoded 11/28/24 07:01 Review of Systems Review of Systems: All systems reviewed & are unremarkable except as noted in HPI and below PMFSH Past Medical History Medical History Influenza A Aug 2024 Exam Narrative: APPEARANCE: Well appearing, no pain, no distress, well-nourished. HEAD: normocephalic, atraumatic. EYES: PERRLA/EOMI, conjunctivae clear. NOSE: Normal no drainage EARS:TMS clear with good light reflex. THROAT: Pharynx clear, no exudate. NECK: Supple. No adenopathy, no masses. RESPIRATORY: Airway patent, respirations nonlabored. Clear to auscultation bilaterally, no rales, rhonchi, wheezing. CARDIOVASCULAR: Regular rate and rhythm without murmurs rubs or gallops. ABDOMINAL: Soft, nontender, nondistended, normal bowel sounds MUSCULOSKELETAL: Right-sided chest wall tenderness to palpation NEURO: Alert. Cranial nerves II through XII intact. Good gait. Good coordination SKIN: Warm, dry. Normal Color Course Vital Signs Vital signs: Vital Signs Temperature 97.8 F 11/28/24 07:02 Pulse Rate 76 11/28/24 07:02 Respiratory Rate 18 11/28/24 07:02 Blood Pressure 106/57 L 11/28/24 07:02 Pulse Oximetry 99 11/28/24 07:02 Oxygen Delivery Room Air 11/28/24 07:02 Temperature 97.8 F 11/28/24 07:02 Pulse Rate 76 11/28/24 07:02 Respiratory Rate 18 11/28/24 07:02 Blood Pressure 106/57 L 11/28/24 07:02 Pulse Oximetry 99 11/28/24 08:19 Oxygen Delivery Room Air 11/28/24 08:19 Medical Decision Making MDM Narrative Medical decision making narrative: 39-year-old female presents to the emergency department for evaluation for right-sided chest wall tenderness to palpation after having a recent ground level fall. Patient did have initial CT imaging of the chest that showed no rib fracture clear lungs and chronic L1 compression fracture. Chest x-ray was reordered today and shows no acute abnormality including no pneumothorax and no pneumonia. Patient's pain is very reproducible to tenderness. Patient was provided IM Toradol and Flexeril for pain control. Patient was advised to continue Tylenol and ibuprofen for pain control and wound be provided additional Flexeril for muscle spasm. EKG shows normal sinus rhythm. All questions concerns were addressed. Differential Diagnosis Differential Diagnosis: Rib fracture, rib contusion, pneumonia, pneumothorax, ACS Vital Signs Vital Signs: Vital Signs Temperature 97.8 F 11/28/24 07:02 Pulse Rate 76 11/28/24 07:02 Respiratory Rate 18 11/28/24 07:02 Blood Pressure 106/57 L 11/28/24 07:02 Pulse Oximetry 99 11/28/24 07:02 Oxygen Delivery Room Air 11/28/24 07:02 Temperature 97.8 F 11/28/24 07:02 Pulse Rate 76 11/28/24 07:02 Respiratory Rate 18 11/28/24 07:02 Blood Pressure 106/57 L 11/28/24 07:02 Pulse Oximetry 99 11/28/24 08:19 Oxygen Delivery Room Air 11/28/24 08:19 Imaging Data Radiologist's impression: Impressions Chest X-Ray 11/28/24 07:48 IMPRESSION: 1. No acute cardiopulmonary disease. ECG Data EKG #1: EKG Interpretation: bradycardia, sinus rhythm, non-specific ST changes, normal QRS, normal QT and NL axis Discharge Plan Discharge Clinical Impression: Acute chest wall pain Patient Disposition: Home Condition: Stable Instructions: Antibiotic Form Additional Instructions: Tylenol and ibuprofen for pain control. Flexeril for muscle spasm. Have close follow-up with your primary care physician. Patient Language: [place] Prescriptions: New cyclobenzaprine 10 mg tablet 10 mg PO BID PRN (Reason: muscle spasm) Qty: 14 0RF No Action methylprednisolone [Medrol (Mateo)] 4 mg tablets,dose pack See Rx Instructions .ROUTE .COMPLEX Qty: 21 0RF Rx Instructions: for 6 days albuterol sulfate [Ventolin HFA] 90 mcg/actuation HFA aerosol inhaler 2 puff inhalation QID PRN (Reason: shortness of breath or wheezing) Qty: 6.7 0RF ibuprofen 600 mg tablet 600 mg PO Q6H PRN (Reason: fever or pain) Qty: 30 0RF hydrocodone-acetaminophen 5-325 mg tablet 1 tablet PO Q6H PRN (Reason: pain) Qty: 14 0RF Follow-up/Referrals: Marcellus Levin MD [Primary Care Provider] - Stand Alone Forms: Work/School Release IP
--- NOTE | 2024-11-28 07:57 | ECG_ITS ---
Test Date: 2024-11-28 08:15:39 Measurements Intervals [place] Rate: 42 P: 63 FL: 152 QRS: 5 QRSD: 110 T: 59 QT: 445 QTc: 375 Interpretive Statements SINUS BRADYCARDIA Compared to ECG 11/27/2024 04:41:56 NO SIGNIFICANT CHANGE Electronically Signed On 11-28-2024 17:13:56 CDT by Rory Zamora M.D.
[2024-11-28] MEDS: CYCLOBENZAPRINE HCL 10 MG TABLET PO (07:58)
[2024-11-28] MEDS: KETOROLAC 30 MG/ML VIAL (*BKC) IM (07:59)
[2024-11-28 08:19] VITALS: O2SAT 99
== END 2024-11-28 08:44 | disposition home or self-care (01) ==
PROVIDERS: Emergency Provider Emergency Medicine; PCP Emergency Medicine
DX: R07.89 Other chest pain (principal); R00.1 Bradycardia, unspecified
CPT/HCPCS: 71046; 93005; 96372; 99283; A9270; J1885